=== PATIENT | female | born 1955 | race Hispanic/Latino ===

== ENCOUNTER 2019-04-15 10:13 | Observation (INO) | payer SELFPAY ==
[2019-04-15] MEDS ORDERED: FENTANYL CITR 100 MCG/2 ML ONE (11:12)
[2019-04-15] MEDS ORDERED: NA CHLORIDE 0.9% 1,000 ML ONE ×3 (11:13→17:03)
[2019-04-15] MEDS ORDERED: ONDANSETRON 4 MG/2 ML VIAL ONE (11:13)
[2019-04-15 11:21] LABS: Absolute Lymphocytes (CBC) 1.5 K/uL (0.7-4.9); Basophils % 0.3 % (0-1.3); Hematocrit 42.2 % (36.0-45.0); MPV 8.8 fL (7.6-11.3)
[2019-04-15 11:28] LABS: Urine Blood 2+ (NEG); Urine Glucose NEGATIVE (NEG); Urine Protein 2+ (NEG); Urine Specific Gravity 1.025 (1.005-1.030)
[2019-04-15 11:28] LABS: Urine Bacteria 20-50 /HPF (<20)
[2019-04-15 11:29] LABS: Urine Culture Reflex Order REFLEXED
[2019-04-15 11:33] LABS: Albumin 3.4 g/dL (3.4-5.0); Bilirubin Direct 0.4 mg/dL (0-0.2); Bilirubin Total 1.6 mg/dL (0.2-1.0); Magnesium 2.2 mg/dL (1.8-2.4); Potassium 4.2 mmol/L (3.5-5.1); Protein, Total 8.1 g/dL (6.4-8.2)
--- NOTE | 2019-04-15 11:33 | RAD REPORT ---
EXAM DESCRIPTION: US - Abdomen Exam Limited - 04/15/2019 11:17 am CLINICAL HISTORY: Abdominal pain COMPARISON: None. FINDINGS: Moderate volume of sludge is present within the lumen of the gallbladder. Gallbladder wall is thickened and there is a trace amount of pericholecystic fluid seen. No mass of the gallbladder w all. No common duct stone or biliary tree dilatation identified. IMPRESSION: Gallbladder wall thickening, trace pericholecystic fluid and moderately large volume of sludge. Correlation is needed with any acute cholecystitis clinical or laboratory findings. No biliary tree dilatation or duct stone.
[2019-04-15] MEDS ORDERED: CEFTRIAXONE/SWI 1gm 1 GM/10 ML SYR ONE (12:27)
[2019-04-15] MEDS ORDERED: PIPER/TAZO/NS 3.375gm 3.375 GM/100 ML BAG ONE (14:26)
--- NOTE | 2019-04-15 14:34 | P.HP ---
Certification for Inpatient Patient admitted to: Observation With expected LOS: <2 Midnights Patient will require the following post-hospital care: None Practitioner: I am a practitioner with admitting privileges, knowledge of patient current condition, hospital course, and medical plan of care. Services: Services provided to patient in accordance with Admission requirements found in Title 42 Section 412.3 of the Code of Federal Regulations Patient History Date of Service: 04/15/19 Primary Care Provider: From [place] Reason for admission: Right upper quadrant abdominal pain History of Present Illness: 63-year-old female presented to the emergency room with right upper quadrant abdominal pain. Patient has reported some chronic right upper abdominal quadrant pain. Most recently over the last 3 days she has been having more pain to the area. It is associated with nausea but no vomiting noted. She has had poor oral intake. Pain got worse therefore she came to the ER for further evaluation. Patient with history of hypertension. She is from [place] and visiting in the area. In the ER patient evaluated. White count 13.8, hemoglobin 14. Platelet count of 250. Sodium 136, potassium 4.2, BUN of 8, creatinine 1.09 with a GFR 52. Glucose 142. Total bilirubin 1.6. Direct bilirubin 0.4. AST 44, ALT 60. Lipase within normal range. Abdominal ultrasound shows gallbladder wall thickening. Trace nixon cholecystic fluid noted. No common bile duct or biliary duct dilation. Patient was admitted for further treatment. ER discuss case with surgery who plans for surgery tomorrow. When I saw the patient ER, pain improved. Patient stable at this time. Home medications list reviewed: Yes - Past Medical/Surgical History Diabetic: No -: Hypertension -: Hysterectomy Psychosocial/ Personal History: Patient is . She is from [place]. She is visiting. - Social History Smoking Status: Never smoker Alcohol use: No CD- Drugs: No Caffeine use: No Place of Residence: Home Review of Systems General: As per HPI Eyes: Unremarkable ENT: Unremarkable Respiratory: Unremarkable Cardiovascular: Unremarkable Gastrointestinal: Nausea, Abdominal Pain, As per HPI Genitourinary: Unremarkable Musculoskeletal: Unremarkable Integumentary: Unremarkable Neurological: Unremarkable Lymphatics: Unremarkable Physical Examination - Physical Exam General: Alert, In no apparent distress, Oriented x3, Cooperative HEENT: Atraumatic, Normocephalic, PERRLA, Other (Dry mucous membranes) Neck: Supple, No Thyromegaly Respiratory: Clear to auscultation bilaterally, Normal air movement Cardiovascular: Normal pulses, Regular rate/rhythm Gastrointestinal: Normal bowel sounds, Soft and benign, Non-distended, No masses , No rebound, No guarding, Tenderness (Pain to the right upper quadrant noted with palpation) Musculoskeletal: No erythema, No tenderness, No warmth Integumentary: No tenderness/swelling, No erythema, No warmth, No cyanosis Neurological: Normal speech, Normal strength at 5/5 x4 extr, Normal tone, Normal affect - Studies Laboratory Data (last 24 hrs) 04/15/19 10:54: Creatinine 1.09 04/15/19 10:54: WBC 13.8 H, Hgb 14.3, Hct 42.2, Plt Count 250 04/15/19 10:54: Sodium 136, Potassium 4.2, BUN 8, Creatinine 1.07, Glucose 142 H , Magnesium 2.2, Total Bilirubin 1.6 H, AST 44 H, ALT 60, Alkaline Phosphatase 97, Lipase 60 L Assessment and Plan - Plan Impression: Right upper quadrant abdominal pain secondary to acute cholecystitis Hypertension Acute renal injury likely dehydration Plan: Right upper quadrant abdominal pain secondary to acute cholecystitis: Patient will be admitted for further evaluation and treatment. Case discussed with surgery. Surgery plans for surgical intervention tomorrow. Will start IV Zosyn. Obtain blood cultures. Will monitor electrolytes and replace appropriately. Will provide medication for pain. DVT prophylaxis-Lovenox to be initiated. Possible discharge within the next 24 hr if clinically stable after surgery. Hypertension: Will provide medication IV. Acute renal injury likely dehydration: Will start IV fluids. Will monitor electrolytes closely. Discharge Plan: Home Plan to discharge in: 24 Hours - Advance Directives Does patient have a Living Will: No Does patient have a Durable POA for Healthcare: No - Code Status/Comfort Care Code Status Assessed: Yes (Patient is full code) Time Spent Managing Pts Care (In Minutes): 55
--- NOTE | 2019-04-15 15:21 | ER ---
Nurse's Notes [facility] Name: Carito Hough Age: 63 yrs Sex: Female : 1955 Arrival Date: 04/15/2019 Time: 10:14 Bed 20 [facility] MD: Diagnosis: Cholecystitis Presentation: 04/15 10:24 Presenting complaint: Patient states: GENERALIZED ABDOMINAL PAIN RADIATING TO RIGHT bp FLANK SINCE SUNDAY. Transition of care: patient was not received from another setting of care. Onset of symptoms is unknown. Risk Assessment: Do you want to hurt yourself or someone else? Patient reports no desire to harm self or others. Initial Sepsis Screen: Does the patient meet any 2 criteria? No. Patient's initial sepsis screen is negative. Does the patient have a suspected source of infection? No. Patient's initial sepsis screen is negative. Care prior to arrival: None. 10:24 Method Of Arrival: Ambulatory bp 10:24 Acuity: GELACIO 3 bp Triage Assessment: 10:27 General: Appears in no apparent distress. uncomfortable, Behavior is calm, cooperative, bp appropriate for age. Pain: Complains of pain in abdomen. GI: Abdomen is non-distended. Historical: - Allergies: 10:27 No Known Allergies; bp - Home Meds: 10:27 losartan oral oral [Active]; Metoprolol Tartrate Oral [Active]; Spironolactone Oral bp [Active]; - PMHx: 10:27 Hypertension; Renal Disease; bp - Immunization history:: Adult Immunizations up to date. - Social history:: Smoking status: Patient/guardian denies using tobacco. - Ebola Screening: : No symptoms or risks identified at this time. Screenin:15 Abuse screen: Denies threats or abuse. Nutritional screening: No deficits noted. tr5 Tuberculosis screening: No symptoms or risk factors identified. Fall Risk No fall in past 12 months (0 pts). No secondary diagnosis (0 pts). IV access (20 points). Ambulatory Aid- None/Bed Rest/Nurse Assist (0 pts). Gait- Normal/Bed Rest/Wheelchair (0 pts) Mental Status- Oriented to own ability (0 pts). Total Mai Fall Scale indicates No Risk (0-24 pts). Assessment: 10:48 Reassessment: Urine specimen collected, urine is dark yellow in color. Urine micro sent aa5 to lab. 11:12 General: Appears in no apparent distress. Behavior is calm, cooperative. Pain: tr5 Complains of pain in abdomen. Neuro: Level of Consciousness is awake, alert, obeys commands, Oriented to person, Trapper Animal are equal bilaterally. Cardiovascular: Heart tones present Bruits absent Capillary refill < 3 seconds Pulses are all present. Edema is absent. Respiratory: Airway is patent Trachea midline Breath sounds are clear bilaterally. GI: No signs and/or symptoms were reported involving the gastrointestinal system. Bowel sounds present X 4 quads. Abd is soft X 4 quads. : No signs and/or symptoms were reported regarding the genitourinary system. EENT: No signs and/or symptoms were reported regarding the EENT system. Derm: Skin is intact, Skin is dry. Musculoskeletal: Capillary refill < 3 seconds, Range of motion: intact in all extremities. 12:15 Reassessment: No changes from previously documented assessment. Patient and/or family tr5 updated on plan of care and expected duration. Pain level reassessed. 14:03 Reassessment: No changes from previously documented assessment. Patient and/or family tr5 updated on plan of care and expected duration. Pain level reassessed. Patient is alert, oriented x 3, equal unlabored respirations, skin warm/dry/pink. 14:58 Reassessment: Patient and/or family updated on plan of care and expected duration. Pain tr5 level reassessed. 15:44 Reassessment: No changes from previously documented assessment. Patient and/or family tr5 updated on plan of care and expected duration. Pain level reassessed. Patient is alert, oriented x 3, equal unlabored respirations, skin warm/dry/pink. Vital Signs: 10:27 BP 120 / 61; Pulse 76; Resp 16; Temp 99; Pulse Ox 98% ; Weight 65 kg; bp 11:30 BP 128 / 65; Pulse 72; Resp 15; Pulse Ox 100% on R/A; tr5 12:24 BP 126 / 68; Pulse 70; Resp 16; Pulse Ox 98% on R/A; tr5 13:30 BP 122 / 60; Pulse 75; Resp 16; Pulse Ox 100% ; tr5 14:30 BP 119 / 60; Pulse 73; Resp 16; Pulse Ox 100% on R/A; tr5 ED Course: 10:14 Patient arrived in ED. as 10:16 Wali Carlson, RN is Primary Nurse. tr5 10:16 Alexander Campbell PA is PHCP. cp 10:16 Alexander Talbot MD is Attending Physician. cp 10:26 Triage completed. bp 10:27 Arm band placed on. bp 10:53 Inserted saline lock: 20 gauge in right antecubital area, using aseptic technique. tr5 11:16 Patient has correct armband on for positive identification. Placed in gown. Bed in low tr5 position. Call light in reach. 11:32 Abdomen Exam Limited In Process Unspecified. EDMS 14:03 Silvio Oconnor DO is Hospitalizing Provider. cp 14:45 Awaiting bed assignment. tr5 15:52 No provider procedures requiring assistance completed. Patient admitted, IV remains in tr5 place. Administered Medications: 11:05 Drug: NS 0.9% 1000 ml Route: IV; Rate: 1 bolus; Site: right antecubital; aa5 11:05 Drug: Zofran 4 mg Route: IVP; Site: right antecubital; aa5 12:10 Follow up: Response: Nausea is decreased tr5 11:05 Drug: fentaNYL (PF) 25 mcg Route: IVP; Site: right antecubital; aa5 12:10 Follow up: Response: Pain is decreased tr5 12:22 Drug: Rocephin - (cefTRIAXone) 1 grams Route: IVPB; Infused Over: 30 mins; Site: right tr5 antecubital; 14:18 Drug: Zosyn 3.375 grams Route: IVPB; Infused Over: 60 mins; Site: right antecubital; tr5 Outcome: 14:03 Decision to Hospitalize by Provider. cp 15:48 Admitted to Med/surg accompanied by tech, via stretcher, with chart, Report called to tr5 Yamileth DUVALL 15:53 Condition: good tr5 15:53 Instructed on the need for admit. 16:01 Patient left the ED. tr5 Signatures: Dispatcher [employer] EDMS Stefania Salmon Audri, RN RN aa5 Alexander Campbell PA PA cp Vitor Norris RN RN bp Wali Carlson RN RN tr5 Corrections: (The following items were deleted from the chart) 10:28 10:27 BP 125 / 74; Pulse 86bpm; Resp 14bpm; Pulse Ox 99% RA; tr5 tr5
--- NOTE | 2019-04-15 15:21 | EDPHYS ---
Physician Documentation [facility] Name: Carito Hough Age: 63 yrs Sex: Female : 1955 Arrival Date: 04/15/2019 Time: 10:14 Bed 20 Private MD: ED Physician Alexander Talbot HPI: 04/15 10:50 This 63 yrs old Female presents to ER via Ambulatory with complaints of cp Abdominal Pain. 10:50 The patient presents with abdominal pain in the right upper quadrant. Onset: The cp symptoms/episode began/occurred 4 day(s) ago. Associated signs and symptoms: Pertinent positives: anorexia, nausea, Pertinent negatives: blood in stools, chest pain, constipation, diarrhea, dysuria, fever, vomiting. The symptoms are described as constant. Severity of pain: in the emergency department the pain is unchanged despite home interventions. The patient has been recently seen by a physician: Maya Villalobos, earlier today, with similar presenting complaints, and was sent to the [facility] Emergency Department for further evaluation. Historical: - Allergies: 10:27 No Known Allergies; bp - Home Meds: 10:27 losartan oral oral [Active]; Metoprolol Tartrate Oral [Active]; Spironolactone Oral bp [Active]; - PMHx: 10:27 Hypertension; Renal Disease; bp - Immunization history:: Adult Immunizations up to date. - Social history:: Smoking status: Patient/guardian denies using tobacco. - Ebola Screening: : No symptoms or risks identified at this time. ROS: 11:00 Constitutional: Negative for body aches, chills, fever, poor PO intake. cp 11:00 Eyes: Negative for injury, pain, redness, and discharge. cp 11:00 ENT: Negative for drainage from ear(s), ear pain, sore throat, difficulty swallowing, difficulty handling secretions. 11:00 Cardiovascular: Negative for chest pain, palpitations. 11:00 Respiratory: Negative for cough, shortness of breath, wheezing. 11:00 Abdomen/GI: Positive for abdominal pain, nausea, anorexia, Negative for vomiting, diarrhea, constipation, black/tarry stool, rectal bleeding. 11:00 : Negative for urinary symptoms. 11:00 Skin: Negative for rash. 11:00 Neuro: Negative for altered mental status, headache, numbness, weakness. 11:00 All other systems are negative. Exam: 11:15 Constitutional: The patient appears in no acute distress, alert, awake, cp non-diaphoretic, non-toxic, well developed, well nourished, uncomfortable. 11:15 Head/Face: Normocephalic, atraumatic. cp 11:15 Eyes: Periorbital structures: appear normal, Conjunctiva: normal, no exudate, no injection, Sclera: no appreciated abnormality, Lids and lashes: appear normal, bilaterally. 11:15 ENT: External ear(s): are unremarkable, Nose: is normal, Mouth: Lips: moist, Oral mucosa: pink and intact, moist, Posterior pharynx: is normal, airway is patent, no erythema, no exudate. 11:15 Chest/axilla: Inspection: normal, Palpation: is normal, no crepitus, no tenderness. 11:15 Cardiovascular: Rate: normal, Rhythm: regular, Heart sounds: murmur, not appreciated, Edema: is not appreciated, JVD: is not appreciated. 11:15 Respiratory: the patient does not display signs of respiratory distress, Respirations: normal, no use of accessory muscles, no retractions, no splinting, no tachypnea, labored breathing, is not present, Breath sounds: are clear throughout, no decreased breath sounds, no stridor, no wheezing. 11:15 Abdomen/GI: Inspection: abdomen appears normal, Bowel sounds: active, all quadrants, Palpation: soft, in all quadrants, severe abdominal tenderness, in the right upper quadrant, rebound tenderness, is appreciated in the right upper quadrant, voluntary guarding, is elicited in the right upper quadrant. 11:15 Skin: no rash present. 11:15 Neuro: Orientation: to person, place \T\ time. Mentation: is normal. Vital Signs: 10:27 BP 120 / 61; Pulse 76; Resp 16; Temp 99; Pulse Ox 98% ; Weight 65 kg; bp 11:30 BP 128 / 65; Pulse 72; Resp 15; Pulse Ox 100% on R/A; tr5 12:24 BP 126 / 68; Pulse 70; Resp 16; Pulse Ox 98% on R/A; tr5 13:30 BP 122 / 60; Pulse 75; Resp 16; Pulse Ox 100% ; tr5 14:30 BP 119 / 60; Pulse 73; Resp 16; Pulse Ox 100% on R/A; tr5 MDM: 10:18 Patient medically screened. olive 11:00 Differential diagnosis: appendicitis, bowel obstruction, cholecystitis, Cholelithiasis, cp non-specific abd pain, pancreatitis, Peptic Ulcer Disease, Perf. Duodenal Ulcer, Perf. Gastric Ulcer, Ureterolithiasis, urinary tract infection. 11:58 Physician consultation: Jed Clark MD was called at 11:58, was contacted at 11:58, cp regarding consult, patient's condition. 12:00 Data reviewed: vital signs, nurses notes, lab test result(s), radiologic studies, cp ultrasound, and as a result, I will admit patient. 12:00 Counseling: I had a detailed discussion with the patient and/or guardian regarding: the cp historical points, exam findings, and any diagnostic results supporting the discharge/admit diagnosis, lab results, radiology results, the need for further work-up and treatment in the hospital. Response to treatment: the patient's symptoms have markedly improved after treatment. 14:00 Physician consultation: Silvio Oconnor DO was called at 14:00, was contacted at 14:00, cp regarding admission, to the medical/surgical unit. patient's condition. 04/15 10:42 Order name: Basic Metabolic Panel 04/15 10:42 Order name: CBC with Diff 04/15 10:42 Order name: Creatinine for Radiology 04/15 10:42 Order name: Hepatic Function 04/15 10:42 Order name: Lipase 04/15 10:42 Order name: Magnesium 04/15 10:52 Order name: Urine Dipstick--Ancillary (enter results) al 04/15 11:25 Order name: CBC with Automated Diff; Complete Time: 11:46 EDMS 04/15 11:28 Order name: Urine Dipstick-Ancillary; Complete Time: 11:46 EDMS 04/15 11:29 Order name: Urine Microscopic Only; Complete Time: 11:46 EDMS 04/15 11:29 Order name: Creatinine (Radiology Only); Complete Time: 11:46 EDMS 04/15 11:34 Order name: Basic Metabolic Panel; Complete Time: 11:46 EDMS 04/15 11:34 Order name: Liver (Hepatic) Function; Complete Time: 11:46 EDMS 04/15 10:42 Order name: IV Saline Lock; Complete Time: 10:53 cp 04/15 10:42 Order name: Labs collected and sent; Complete Time: 10:53 cp 04/15 10:42 Order name: US Abdomen Limited: RUQ/epigastric cp 04/15 10:42 Order name: Urine Dipstick-Ancillary (obtain specimen); Complete Time: 10:48 cp 04/15 11:32 Order name: Abdomen Exam Limited; Complete Time: 11:46 EDMS 04/15 11:34 Order name: Magnesium; Complete Time: 11:46 EDMS 04/15 11:34 Order name: Lipase; Complete Time: 11:46 EDMS 04/15 11:48 Order name: Urine Culture EDMS Administered Medications: 11:05 Drug: NS 0.9% 1000 ml Route: IV; Rate: 1 bolus; Site: right antecubital; aa5 11:05 Drug: Zofran 4 mg Route: IVP; Site: right antecubital; aa5 12:10 Follow up: Response: Nausea is decreased tr5 11:05 Drug: fentaNYL (PF) 25 mcg Route: IVP; Site: right antecubital; aa5 12:10 Follow up: Response: Pain is decreased tr5 12:22 Drug: Rocephin - (cefTRIAXone) 1 grams Route: IVPB; Infused Over: 30 mins; Site: right tr5 antecubital; 14:18 Drug: Zosyn 3.375 grams Route: IVPB; Infused Over: 60 mins; Site: right antecubital; tr5 Disposition: 04/15/19 14:03 Hospitalization ordered by Silvio Oconnor for Inpatient Admission. Preliminary diagnosis is Cholecystitis. - Bed requested for Telemetry/MedSurg (Inpatient). - Status is Inpatient Admission. tr5 - Condition is Stable. - Problem is new. - Symptoms have improved. UTI on Admission? No Addendum: 04/16/2019 16:36 Co-signature as Attending Physician, Alexander Talbot MD I agree with the assessment and c antunez plan of care. Signatures: Dispatcher [employer] Mariya Garzon RN RN dw Anderson, Corey, MD MD cha Calderon, Audri RN RN aa5 Alexander Campbell PA PA cp Peltier, Brian, RN RN Wali Clay RN RN tr5 Corrections: (The following items were deleted from the chart) 04/15 14:49 14:03 Hospitalization Ordered by Silvio Oconnor DO for Inpatient Admission. Preliminary diagnosis is Cholecystitis. Bed requested for Telemetry/MedSurg (Inpatient). Status is Inpatient Admission. Condition is Stable. Problem is new. Symptoms have improved. UTI on Admission? No. cp 14:58 14:49 04/15/2019 14:03 Hospitalization Ordered by Silvio Oconnor DO for Inpatient dw Admission. Preliminary diagnosis is Cholecystitis. Bed requested for Telemetry/MedSurg (Inpatient). Status is Inpatient Admission. Condition is Stable. Problem is new. Symptoms have improved. UTI on Admission? No. dw 15:18 11:16 UA MICROSCOPIC+U.LAB.BRZ ordered. EDMD EDMS 16:01 14:58 04/15/2019 14:03 Hospitalization Ordered by Silvio Oconnor DO for Inpatient tr5 Admission. Preliminary diagnosis is Cholecystitis. Bed requested for Telemetry/MedSurg (Inpatient). Status is Inpatient Admission. Condition is Stable. Problem is new. Symptoms have improved. UTI on Admission? No. dw
[2019-04-15] MEDS ORDERED: ACETAMINOPHEN 650MG/RECT SUPP PR PRN (16:42)
[2019-04-15] MEDS: NA CHLORIDE 0.9% 1,000 ML IV SCH (16:42)
[2019-04-15] MEDS ORDERED: ONDANSETRON 4 MG/2 ML VIAL IV PRN (16:42)
[2019-04-15] MEDS ORDERED: HYDRALAZINE HCL 20 MG/ML VIAL IV PRN (16:42)
[2019-04-15] MEDS ORDERED: PIPER/TAZO/NS 3.375gm 3.375 GM/100 ML BAG IVPB SCH (17:00)
[2019-04-15] MEDS: ENOXAPARIN 40 MG/0.4 ML SQ SCH (17:36)
[2019-04-15] MEDS: ACETAMINOPHEN 500 MG TAB PO PRN (17:36)
[2019-04-15] MEDS: FAMOTIDINE 20 MG/2 ML VIAL IV SCH (17:36)
[2019-04-16] MEDS: PIPER/TAZO/NS 3.375gm 3.375 GM/100 ML BAG IVPB SCH ×3 (01:30→17:00)
[2019-04-16] MEDS: NA CHLORIDE 0.9% 1,000 ML IV SCH ×3 (02:00→22:42)
[2019-04-16 06:19] LABS: Absolute Lymphocytes (CBC) 1.6 K/uL (0.7-4.9); Basophils % 0.3 % (0-1.3); Eosinophils % 0.1 % (0-4.4); Hematocrit 36.9 % (36.0-45.0); Lymphocytes % 13.1 % (15.3-44.8); MPV 8.9 fL (7.6-11.3); Monocytes % 8.3 % (3.3-12.3); RBC Red Blood Cell Count 3.94 M/uL (3.86-4.86)
[2019-04-16 06:40] LABS: Albumin 2.6 g/dL (3.4-5.0); Bilirubin Total 1.6 mg/dL (0.2-1.0); Potassium 3.6 mmol/L (3.5-5.1); Protein, Total 6.7 g/dL (6.4-8.2)
[2019-04-16] MEDS: MORPHINE 2 MG/ML SYR IV PRN ×2 (06:46→18:48)
[2019-04-16] MEDS: ENOXAPARIN 40 MG/0.4 ML SQ SCH (09:00)
[2019-04-16] MEDS ORDERED: KCL 20 MEQ/100 mL IVPB 20 MEQ/100 ML BAG IV SCH (09:00)
[2019-04-16] MEDS: FAMOTIDINE 20 MG/2 ML VIAL IV SCH (09:12)
--- NOTE | 2019-04-16 09:28 | P.PN ---
Subjective Date of Service: 04/16/19 Primary Care Provider: From [place] Chief Complaint: Right upper quadrant abdominal pain Subjective: Other (Patient NPO for surgical intervention this morning. Pain improved. No significant nausea or vomiting) Physical Examination - Vital Signs Temperature: 99.0 F Blood Pressure: 115/53 Pulse: 87 Respirations: 18 Pulse Ox (%): 95 - Physical Exam General: Alert, In no apparent distress, Oriented x3, Cooperative HEENT: Atraumatic Neck: Supple Respiratory: Clear to auscultation bilaterally, Normal air movement Cardiovascular: Normal pulses, Regular rate/rhythm Gastrointestinal: Normal bowel sounds, Soft and benign, Non-distended, No masses , No rebound, No guarding, Tenderness (Minimal right upper quadrant pain) Musculoskeletal: No erythema, No tenderness, No warmth Integumentary: No erythema, No warmth, No cyanosis Neurological: Normal speech, Normal strength at 5/5 x4 extr, Normal tone, Normal affect - Studies Laboratory Data (last 24 hrs) 04/15/19 10:54: Creatinine 1.09 04/15/19 10:54: WBC 13.8 H, Hgb 14.3, Hct 42.2, Plt Count 250 04/15/19 10:54: Sodium 136, Potassium 4.2, BUN 8, Creatinine 1.07, Glucose 142 H , Magnesium 2.2, Total Bilirubin 1.6 H, AST 44 H, ALT 60, Alkaline Phosphatase 97, Lipase 60 L Medications List Reviewed: Yes Assessment & Plan Discharge Plan: Home Plan to discharge in: 24 Hours Physician Review Additional Text: Impression: Right upper quadrant abdominal pain secondary to acute cholecystitis Hypertension Acute renal injury likely dehydration Plan: Right upper quadrant abdominal pain secondary to acute cholecystitis: Patient currently NPO for surgical intervention this morning. Continue IV fluids and antibiotic therapy. Patient on DVT prophylaxis. Case discussed with surgery. If surgery unremarkable then patient may be able to be discharged later today if clinically stable and tolerating diet. Hypertension: Will provide medication IV. Acute renal injury likely dehydration: This has improved. Continue IV fluids. Continue to monitor and adjust electrolytes. Electrolytes to be replaced. Time Spent Managing Pts Care (In Minutes): 55
--- NOTE | 2019-04-16 11:53 | P.OP ---
Preoperative diagnosis: Acute Cholecystitis Postoperative diagnosis: Acute Cholecystitis Primary procedure: Laparoscopic Cholecystectomy Anesthesia: GETA + Local Estimated blood loss: <10cc Specimen: Gallbladder Findings: Acute Inflammation, short cystic duct Complications: None Transferred to: Recovery Room Condition: Good
--- NOTE | 2019-04-16 12:32 | CON ---
Date of Consultation: 04/15/2019 Brief History Of Present Illness: The patient is a 63-year-old female, who presents to the emergency room with right upper quadrant abdominal pain. It began approximately 3-4 days ago in the right upper quadrant associated with nausea but no vomiting and some pain in the epigastric area. It got worse and therefore she came to the emergency room for evaluation of this process. She is from [place] and visiting the area. She has had multiple episodes of pain like this before in the past, antunez d been evaluated in [place] but not had any specific instruction with respect to the gallbladder or di sease process. She states that this has been going on for several years. She has not noted any part icular food associations, but cannot recall her meals prior to this occurring. Past Medical History: Significant for hypertension, hysterectomy. She also has some degree of renal disease. Social History: She denies smoking, alcohol, or recreational drug use. She is visiting from [place]. She is currently . Allergies: NO KNOWN DRUG ALLERGIES. Medications: Include losartan, metoprolol and spironolactone. Physical Examination: Vital Signs: At time of my examination, her BMI is 26 approximately, blood pressure is 107/54, pulse 78, respiratory rate 18, temperature 98.7. General: She is awake, alert, and oriented. She is appropriate and conversive. She is in no acute apparent distress. HEENT: She is otherwise normocephalic. Sclerae anicteric. Mucous membranes are moist. Oropharynx is clear. Neck is supple. No JVD. Chest: Normal expansion and excursion. Cardiovascular: Regular rate and rhythm. Pulmonary: Clear to auscultation bilaterally. Abdomen: Soft with mild epigastric and right upper quadrant tenderness to palpation. Negative Mauricio y sign. No rebound. No guarding. There is minimal tenderness in this area, but it is tender in the right upper quadrant. No CVA angle tenderness. Extremities: No clubbing, cyanosis, or edema. Skin: Warm and dry. Laboratory Data: Reveals white blood count 13.8, hemoglobin is 14.3, hematocrit 42.2, platelet count is 250, neutrophils 79%. Sodium 136, potassium 4.2, chloride 102, carbon dioxide 28, BUN 8, creatin ine 1.09, glucose is 142, total bilirubin 1.6, direct component 0.4, AST 44, ALT 60, alkaline phospha tase 97, lipase is 60. She had imaging performed, which included abdominal ultrasound, officially re ad as gallbladder wall thickening, trace pericholecystic fluid and moderately large volume of sludge. Correlation is needed with any acute cholecystitis. No biliary tree dilatation or duct stone. Assessment And Plan: This is a 63-year-old female who presents with signs and symptoms of acute chol ecystitis. 1.IV fluid hydration. 2.Antibiotic coverage. 3.I have explained the risks, benefits, and alternatives of laparoscopic, possible open cholecystect qing including but not limited to bleeding, infection, damage to surrounding tissues, injury to bile d ucts, intestines. The patient agrees to proceed as indicated. Keep the patient n.p.o. after midnigh t and we will proceed with surgery. CURRY/ANTHONY Voice ID: [id number] Report ID: [id number]
[2019-04-16] MEDS ORDERED: NA CHLORIDE 0.9% 1,000 ML ONE (12:37)
[2019-04-16] MEDS ORDERED: HYDROMORPHONE HCL 1 MG/ML INJ ONE (12:39)
--- NOTE | 2019-04-16 13:24 | OP ---
Date of Procedure: 04/16/2019 Surgeon: Jed Clark MD, Preoperative Diagnosis: Acute cholecystitis. Postoperative Diagnosis: Acute cholecystitis. Procedure Performed: Laparoscopic cholecystectomy. Anesthesia: General endotracheal plus local with 0.25% Marcaine. Estimated Blood Loss: Less than 10 cc. Specimen: Gallbladder. Findings: Acute inflammation, short cystic duct. Complications: None. Disposition: Transferred to recovery room in good condition. Procedure In Detail: After informed consent was obtained, the patient was brought to the operating r oom, prepped and draped in the usual sterile fashion. After adequate anesthesia achieved, a supraumb ilical area was anesthetized with 0.25% Marcaine and sharply incised, a 5-mm trocar was introduced in to the abdomen without evidence of complication. Insufflation was obtained to 15 mmHg at this time. The area was inspected. There was no injury to vital structures upon entry to the abdomen. Additio nal trocar site was chosen in the epigastrium. This similarly was anesthetized and sharply incised. A 5-mm trocar was introduced into the abdomen without evidence of complication. The umbilical troca r was then up-sized to a 12 mm under direct visualization without evidence of complication. Addition al trocar site chosen in the right upper quadrant, similarly anesthetized and sharply incised. A 5-m m trocar was introduced into the abdomen without evidence of complication. The patient was positione d head up, right-side up position. The gallbladder was found to be completely encased in omentum at this time and difficult to grasp, as such I position the gallbladder to allow for decompression needl e to decompress the gallbladder, which was performed successfully through the fundus of the gallbladd er. After this was performed, I grasped the gallbladder placed towards the patient's right shoulder, dissected the omental attachments off the anterior surface of the gallbladder extending all the way down to the Jaiden pouch region. The Jaiden's pouch was then dissected until 2 structures were i dentified, both of these were identified as cystic duct and cystic artery. Cystic duct was found to be quite short, cystic artery was found to have an aberrant course along the anterior surface of the gallbladder, moving from the medial aspect across the top of the cystic duct to the gallbladder surfa ce on the medial aspect of the gallbladder. I took down the peritoneal attachments on the both media l and lateral aspects, and creating a window posteriorly to ensure no other structures were entering the gallbladder and this indeed was the appropriate and anatomic structures, and these 2 structures w ere identified after dissecting the gallbladder partially off the hepatic fossa before ligating any s tructures. The cystic duct and cystic artery were therefore identified and a critical view of safety was obtained at this time. The titanium clips were then doubly placed on the proximal side, and sin gly on the distal side of both cystic duct and cystic artery. The Endo Salvador was then used to ligat e the above structures without evidence of complication. Good hemostasis was achieved at this point. Gallbladder was then removed from the hepatic fossa with minimal spillage of bile and contents, whi ch were suctioned out. The gallbladder was then removed from hepatic fossa, placed in EndoCatch bag and removed through the umbilical trocar. The hepatic fossa required some additional fulguration jose manuel ng the medial and lateral edges of the hepatic bed. Good hemostasis was achieved. At the end of the procedure, the area was then copiously irrigated multiple times until completely clear. The effluen t was completely clear. At this time the patient was positioned in neutral position, irrigated one l ast time and suctioned until completely dry. The umbilical trocar was then removed. The umbilical t rocar site was then closed using a Miky-Laura suture passer and 0 Vicryl in interrupted fashion with good approximation of tissues. The abdomen was completely decompressed, 2 additional trocar sit es were removed under direct visualization without evidence of complication. All skin incisions were copiously irrigated and closed with a 4-0 Monocryl in a running fashion, Dermabond was placed over t op. The patient tolerated the procedure well without evidence of complication and transferred to PACU in good condition. All counts were correct at the end of the ca se. TK/MODL Voice ID: [id number] Report ID: [id number]
--- NOTE | 2019-04-16 13:36 | P.DS ---
Admission Date: 04/15/19 Discharge Date: 04/16/19 Primary Care Provider: From [place] Disposition: ROUTINE DISCHARGE Discharge Condition: GOOD Reason for Admission: Right upper quadrant abdominal pain Consultations: Surgery-Dr. Clark Procedures: ABUS: FINDINGS: Moderate volume of sludge is present within the lumen of the gallbladder. Gallbladder wall is thickened and there is a trace amount of pericholecystic fluid seen. No mass of the gallbladder wall. No common duct stone or biliary tree dilatation identified. IMPRESSION: Gallbladder wall thickening, trace pericholecystic fluid and moderately large volume of sludge. Correlation is needed with any acute cholecystitis clinical or laboratory findings. No biliary tree dilatation or duct stone. Surgery: Date of service: 04/16/2019 Surgeon: Dr. Jed Clark Preop diagnosis: Acute cholecystitis Postop diagnosis: Acute cholecystitis Primary procedure: Laparoscopic cholecystectomy Findings: Acute inflammation, short cystic duct Complications none Medical Problem List: Right upper quadrant abdominal pain secondary to acute cholecystitis, status post cholecystectomy Hypertension Acute renal injury likely dehydration Brief History of Present Illness: 63-year-old female presented to the emergency room with right upper quadrant abdominal pain. Patient has reported some chronic right upper abdominal quadrant pain. Most recently over the last 3 days she has been having more pain to the area. It is associated with nausea but no vomiting noted. She has had poor oral intake. Pain got worse therefore she came to the ER for further evaluation. Patient with history of hypertension. She is from [place] and visiting in the area. In the ER patient evaluated. White count 13.8, hemoglobin 14. Platelet count of 250. Sodium 136, potassium 4.2, BUN of 8, creatinine 1.09 with a GFR 52. Glucose 142. Total bilirubin 1.6. Direct bilirubin 0.4. AST 44, ALT 60. Lipase within normal range. Abdominal ultrasound shows gallbladder wall thickening. Trace nixon cholecystic fluid noted. No common bile duct or biliary duct dilation. Patient was admitted for further treatment. ER discuss case with surgery who plans for surgery tomorrow. When I saw the patient ER, pain improved. Patient stable at this time. Hospital Course: Patient presented with right upper quadrant abdominal pain secondary to acute cholecystitis. Patient was admitted and started on IV fluids and antibiotic therapy. Patient seen by surgery. Surgery recommended surgical intervention. Laparoscopic cholecystectomy was done. Patient tolerated the procedure well. At discharge she is without any significant nausea, vomiting or abdominal pain. She has tolerated her diet. Recommend follow up with surgery within 1 week. No heavy lifting, pushing or pulling. Postop care will be provided. A limited supply of tramadol 50 mg 1 pill 3 times a day as needed for pain will be provided. Patient with underlying hypertension. This has remained stable. At discharge she may continue with her medications of metoprolol XL 50 mg daily, losartan 25 mg daily. Recommend to maintain blood pressures less 150/80. Further adjustment can be done by her PCP. Patient with underlying GERD. At discharge she may continue with Prilosec 20 mg daily. Continue with GERD diet. Patient had acute renal injury secondary to dehydration. This improved with IV fluids. Vital Signs/Physical Exam: Temp Pulse Resp BP Pulse Ox 98.4 F 80 18 138/62 95 04/16/19 12:36 04/16/19 12:36 04/16/19 12:36 04/16/19 12:36 04/16/19 09:28 General: Alert, In no apparent distress, Oriented x3, Cooperative HEENT: Atraumatic Neck: Supple Respiratory: Clear to auscultation bilaterally, Normal air movement Cardiovascular: Normal pulses, Regular rate/rhythm Gastrointestinal: Normal bowel sounds, Soft and benign, Non-distended, No tenderness, No masses, No rebound, No guarding Musculoskeletal: No erythema, No tenderness, No warmth Integumentary: No tenderness/swelling, No erythema, No warmth, No cyanosis Neurological: Normal speech, Normal strength at 5/5 x4 extr, Normal tone, Normal affect Laboratory Data at Discharge: WBC 12.0 K/uL (4.3-10.9) H 04/16/19 05:28 Hgb 12.8 g/dL (12.0-15.0) 04/16/19 05:28 Hct 36.9 % (36.0-45.0) 04/16/19 05:28 Plt Count 216 K/uL (152-406) 04/16/19 05:28 Sodium 139 mmol/L (136-145) 04/16/19 05:25 Potassium 3.6 mmol/L (3.5-5.1) 04/16/19 05:25 BUN 8 mg/dL (7-18) 04/16/19 05:25 Creatinine 0.89 mg/dL (0.55-1.3) 04/16/19 05:25 Glucose 96 mg/dL (74-106) 04/16/19 05:25 Magnesium 2.0 mg/dL (1.8-2.4) 04/16/19 05:25 Total Bilirubin 1.6 mg/dL (0.2-1.0) H 04/16/19 05:25 AST 37 U/L (15-37) 04/16/19 05:25 ALT 63 U/L (12-78) 04/16/19 05:25 Alkaline Phosphatase 94 U/L (45-117) 04/16/19 05:25 Lipase 60 U/L (73-393) L 04/15/19 10:54 Home Medications: Losartan Potassium 25 mg PO DAILY 04/15/19 Metoprolol Succinate [Toprol Xl*] 50 mg PO DAILY 04/15/19 Omeprazole 20 mg PO DAILY 04/15/19 Patient Discharge Instructions: 1. Recommend follow up with surgery within 1 week to follow up hospitalization and surgery. 2. Patient presented with right upper quadrant abdominal pain secondary to acute cholecystitis. Patient was admitted and started on IV fluids and antibiotic therapy. Patient seen by surgery. Surgery recommended surgical intervention. Laparoscopic cholecystectomy was done. Patient tolerated the procedure well. At discharge she is without any significant nausea, vomiting or abdominal pain. She has tolerated her diet. Recommend follow up with surgery within 1 week. No heavy lifting, pushing or pulling. Postop care will be provided. A limited supply of tramadol 50 mg 1 pill 3 times a day as needed for pain will be provided. 3. Patient with underlying hypertension. This has remained stable. At discharge she may continue with her medications of metoprolol XL 50 mg daily, losartan 25 mg daily. Recommend to maintain blood pressures less 150/80. Further adjustment can be done by her PCP. 4. Patient with underlying GERD. At discharge she may continue with Prilosec 20 mg daily. Continue with GERD diet. 5. Patient had acute renal injury secondary to dehydration. This improved with IV fluids. Diet: [place] Activity: No lifting more than 10 lbs Followup: Jed Clark MD [ACTIVE - CAN ADMIT] - Time spent managing pt's care (in minutes): 55
[2019-04-16] MEDS ORDERED: HYDROCODONE/APAP 5/325 MG TAB PO ONE (21:15)
[2019-04-16] MEDS: TRAMADOL HCL 50 MG TAB PO PRN (22:27)
[2019-04-17] MEDS: NA CHLORIDE 0.9% 1,000 ML IV SCH ×2 (00:16→08:42)
[2019-04-17] MEDS: PIPER/TAZO/NS 3.375gm 3.375 GM/100 ML BAG IVPB SCH ×2 (00:17→08:40)
[2019-04-17] MEDS: ACETAMINOPHEN 500 MG TAB PO PRN (00:21)
[2019-04-17] MEDS: TRAMADOL HCL 50 MG TAB PO PRN (05:46)
[2019-04-17 06:26] LABS: Absolute Lymphocytes (CBC) 1.9 K/uL (0.7-4.9); Basophils % 0.3 % (0-1.3); Eosinophils % 0.2 % (0-4.4); Hematocrit 34.7 % (36.0-45.0); Lymphocytes % 20.5 % (15.3-44.8); MPV 8.3 fL (7.6-11.3); Monocytes % 8.7 % (3.3-12.3); RBC Red Blood Cell Count 3.66 M/uL (3.86-4.86)
[2019-04-17] MEDS ORDERED: PANTOPRAZOLE 40MG TABLET PO SCH (06:30)
[2019-04-17 06:44] LABS: Albumin 2.5 g/dL (3.4-5.0); Bilirubin Total 1.1 mg/dL (0.2-1.0); Magnesium 1.9 mg/dL (1.8-2.4); Potassium 3.5 mmol/L (3.5-5.1); Protein, Total 6.8 g/dL (6.4-8.2)
[2019-04-17] MEDS ORDERED: LOSARTAN POTASSIUM 50 MG TABLET PO SCH (09:00)
[2019-04-17] MEDS ORDERED: METOPROLOL XL 50 MG TAB PO SCH (09:00)
[2019-04-17] MEDS ORDERED: POTASSIUM CL SA 10 MEQ TAB PO ONE (09:00)
[2019-04-17] MEDS: FAMOTIDINE 20 MG/2 ML VIAL IV SCH (09:00)
[2019-04-17] MEDS: ENOXAPARIN 40 MG/0.4 ML SQ SCH (09:00)
== END 2019-04-17 11:06 | disposition home or self-care (01) ==
LOC: ER 10:13 → ERHOLD 14:19 → 2ND 15:54
PROVIDERS: ADMIT Family Medicine; ATTEND Family Medicine
PROC: 0FT44ZZ Resection of Gallbladder, Percutaneous Endoscopic Approach (ICD-10-PCS; principal; 2019-04-16 10:30)
DX: K80.00 Calculus of gallbladder with acute cholecystitis without obstruction (principal); E86.0 Dehydration; I10 Essential (primary) hypertension; K21.9 Gastro-esophageal reflux disease without esophagitis; Z79.899 Other long term (current) drug therapy
CPT/HCPCS: 36415; 76705; 80048; 80053; 80076; 81003; 81015; 83690; 83735; 85025; 87040; 87086; 87088; 88304; 96374; 96375; 99285; G0378; J0696; J1170; J1650; J2270; J2405; J2543; J3010; J7030